=== PATIENT | male | born 1995 | race Caucasian/White ===

== ENCOUNTER → 2023-02-09 | Outpatient (REF) | payer BC | LOC: M SFHCCLAY 16:45 | PROVIDERS: ATTEND Nurse Practitioner Family | DX: J02.9 Acute pharyngitis, unspecified (principal) ==

== ENCOUNTER 2024-05-07 17:35 | Emergency (ER) | payer BC ==
[~2024-05-07] VITALS: Ht 177.8 cm; Wt 81.4 kg
[2024-05-07] MEDS: BOOSTRIX VACCINE (TETANUS/DIPHTH/ACEL. PERTUSSIS) 0.5ML SYR IM ONE (18:25)
[2024-05-07] MEDS: FLUORESCEIN OPHTH 1MG STRIP XX ONE (18:45)
[2024-05-07] MEDS: TETRACAINE 0.5% OPHTH SOLN 4ML OD ONE (19:17)
[2024-05-07 20:33] VITALS: BP 135/76; TEMP 97.5; O2SAT 100
== END 2024-05-07 20:34 | disposition home or self-care (01) ==
LOC: M ED 17:35
DX: H57.11 Ocular pain, right eye (principal)